=== PATIENT | female | born 1990 | race Two or more races ===

== ENCOUNTER 2023-03-01 06:00 | Emergency (ER) | payer BC ==
[~2023-03-01] VITALS: Ht 160 cm; Wt 99.1 kg
[2023-03-01 07:40] VITALS: BP 159/93
[2023-03-01] MEDS ORDERED: NO HOME MEDS (07:41)
== END 2023-03-01 09:08 | disposition home or self-care (01) ==
LOC: ER 06:01
DX: S05.31XA Ocular laceration without prolapse or loss of intraocular tissue, right eye, initial encounter (principal); W19.XXXA Unspecified fall, initial encounter; Y93.89 Activity, other specified; Y92.89 Other specified places as the place of occurrence of the external cause; Y99.8 Other external cause status
CPT/HCPCS: 12011; 99284

== ENCOUNTER 2023-03-07 08:00 | Emergency (ER) | payer BC ==
[~2023-03-07] VITALS: Ht 160 cm; Wt 140.4 kg
[~2023-03-07 08:00] MED LIST: NO HOME MEDS
[2023-03-07 08:01] VITALS: BP 166/81
== END 2023-03-07 08:27 | disposition home or self-care (01) ==
LOC: ER 08:01
DX: S05.31XD Ocular laceration without prolapse or loss of intraocular tissue, right eye, subsequent encounter (principal); X58.XXXD Exposure to other specified factors, subsequent encounter
CPT/HCPCS: 99281